=== PATIENT | male | born 1975 | race Caucasian/White ===

== ENCOUNTER 2016-08-29 23:12 | Emergency (ER) | payer SELFPAY ==
[2016-08-29 23:22] VITALS: BP 157/88; PULSE 90; TEMP 98.3
[2016-08-30] MEDS ORDERED: KETOROLAC TROMETHAMINE 30 MG/1 ML VIAL IVPUSH ONE (00:12)
[2016-08-30] MEDS ORDERED: ONDANSETRON 4 MG/2 ML VIAL IVPUSH ONE (00:17)
--- NOTE | 2016-08-30 00:17 | PDOC ---
History of Present Illness - General Chief Complaint: Urinary Problem Stated Complaint: HEMATURIA Time Seen by Provider: 08/29/16 23:23 - History of Present Illness Initial Comments: 08/30/16 00:13 CHIEF COMPLAINT: urinary pain/hematuria HISTORY OF PRESENT ILLNESS: 40 yo M with no PMH presents to ED with pain to L lower back and urinary pain. Patient reports that he felt a little of the pain last week but then it went away until two days ago when the pain recurred "but much worse." He reports that he saw a little bit of blood in his urine today. He denies any vomiting or diarrhea but reports nausea today. PAST MEDICAL HISTORY: Denies past medical history FAMILY HISTORY: Denies SOCIAL HISTORY:Denies tobacco, alcohol, illicit drug use. SURGICAL HISTORY: Denies ALLERGIES: No known drug allergies REVIEW OF SYSTEMS General/Constitutional: Denies fever or chills. Denies weakness, weight change. HEENT: Denies change in vision. Denies ear pain or discharge. Denies sore throat. Cardiovascular: Denies chest pain or shortness of breath. Respiratory: Denies cough, wheezing, or hemoptysis. Gastrointestinal: Denies nausea, vomiting, diarrhea or constipation. Denies rectal bleeding. Genitourinary: Denies dysuria, frequency, or change in urination. Musculoskeletal: Denies joint or muscle swelling or pain. Denies neck or back pain. Skin and breasts: Denies rash or easy bruising. Neurologic: Denies headache, vertigo, loss of consciousness, or loss of sensation. PHYSICAL EXAM General Appearance: Well-appearing, appropriately dressed. No apparent distress. HEENT: EOMI, PERRLA, normal ENT inspection, normal voice, TMs normal, pharynx normal. No conjunctival pallor. No photophobia, scleral icterus. Neck: Supple. Trachea midline. No tenderness, rigidity, carotid bruit, stridor , lymphadenopathy, or thyromegaly. Respiratory/Chest: Lungs CTAB. No shortness of breath, chest tenderness, respiratory distress, accessory muscle use. No crackles, rales, rhonchi, stridor , wheezing, dullness Cardiovascular: RRR. S1, S2. No JVD, murmur, bradycardia, tachycardia. Vascular Pulses: Dorsalis-Pedis (R): 2+, Dorsalis-Pedis (L): 2+ Gastrointestinal/Abdominal: Normal bowel sounds. Abdomen soft, non-distended. No tenderness or rebound tenderness. No organomegaly, pulsatile mass, guarding , hernia, hepatomegaly, splenomegaly. Lymphatic: No adenopathy, tenderness. Musculoskeletal/Extremities: L CVA tenderness. Normal inspection. FROM of all extremities, normal capillary refill. Pelvis Stable. No CVA tenderness. No tenderness to extremities, pedal edema, swelling, erythema or deformity. Integumentary: Appropriate color, dry, warm. No cyanosis, erythema, jaundice or rash Neurologic: field project manager II-XII intact. Fully oriented, alert. Appropriate mood/affect. Motor strength 5/5. No appreciable EOM palsy, facial droop or sensory deficit. Past History - Past Medical History Allergies/Adverse Reactions: Allergies Allergy/AdvReac Type Severity Reaction Status Date / Time No Known Allergies Allergy Verified 08/29/16 23:21 Home Medications: Ambulatory Orders Ibuprofen 800 mg PO TID PRN #28 tablet 08/30/16 Tamsulosin HCl [Flomax] 0.4 mg PO DAILY #14 cap.er.24h 08/30/16 Other medical history: denies - Psycho/Social/Smoking Cessation Hx Suicidal Ideation: No Smoking History: Never smoked *Physical Exam - Vital Signs Last Vital Signs Temp Pulse Resp BP Pulse Ox 98.3 F 90 18 157/88 08/29/16 23:18 08/29/16 23:18 08/29/16 23:18 08/29/16 23:18 Medical Decision Making - Medical Decision Making 08/30/16 00:35 40 yo M with no PMH presents to ED with pain to L lower back and urinary pain. -UA, UCx -Spiral CT CT positive 6 mm distal left ureteral stone just adjacent to the UVJ. -Flomax given in ED Flomax rx sent to pharm. Advised patient to take meds as prescribed and f/u with urology. Advised patient of signs and symptoms for return to ER; patient verbalized understanding and agrees to plan. *DC/Admit/Observation/Transfer Diagnosis at time of Disposition: Kidney stone on left side - Discharge Dispostion Disposition: HOME Admit: No - Prescriptions Prescriptions: Tamsulosin HCl [Flomax] 0.4 mg PO DAILY #14 cap.er.24h Ibuprofen 800 mg PO TID PRN #28 tablet PRN Reason: Pain - Referrals Referrals: Sawyer Walton MD [Staff Physician] - - Patient Instructions Printed Discharge Instructions: DI for Kidney Stones Additional Instructions: Please take medications as prescribed. Follow up with urology within the week for further evaluation of your kidney stones. Use the strainer to try to catch the stone for analysis so you can bring it with you to the urologist. If you experience any new or worsening symptoms, please return to the ER. Por favor, tome los medicamentos segn las indicaciones. Siga con urologa esta semana para caesar evaluacin ms detallada de mirna clculos renales. Utilice el colador para intentar coger la stephane para el anlisis as que usted puede traerla con usted al urlogo. Si experimenta algn sntoma nuevo o que empeora, por favor regrese a la rubens de emergencias. Print Language: GHANAIAN
[2016-08-30] MEDS ORDERED: KETOROLAC TROMETHAMINE 30 MG/1 ML VIAL ONE (00:18)
[2016-08-30] MEDS ORDERED: ONDANSETRON 4 MG/2 ML VIAL ONE (00:19)
[2016-08-30 00:46] LABS: URINE APPEARANCE CLEAR; URINE BILIRUBIN NEGATIVE (NEGATIVE); URINE BLOOD 3+ (NEGATIVE); URINE COLOR STRAW; URINE GLUCOSE (UA) NEGATIVE (NEGATIVE); URINE KETONE NEGATIVE (NEGATIVE); URINE LEUK ESTERASE NEGATIVE (NEGATIVE); URINE NITRITE NEGATIVE (NEGATIVE); URINE PROTEIN NEGATIVE (NEGATIVE); URINE UROBILINOGEN NEGATIVE mg/dL (0.2-1.0)
[2016-08-30 01:17] LABS: URINE MUCUS RARE; URINE RBC 46 /hpf (0-3); URINE WBC 4 /hpf (3-5)
[2016-08-30] MEDS ORDERED: TAMSULOSIN HCL 0.4 MG CAP.ER.24H (FP) PO ONE (02:30)
[2016-08-30] MEDS ORDERED: TAMSULOSIN HCL 0.4 MG CAP.ER.24H (FP) ONE (02:51)
== END 2016-08-30 03:15 | disposition home or self-care (01) ==
LOC: JER 23:12
PROC: 3E0333Z Introduction of Anti-inflammatory into Peripheral Vein, Percutaneous Approach (ICD-10-PCS; principal; 2016-08-29)
PROC: 3E033GC Introduction of Other Therapeutic Substance into Peripheral Vein, Percutaneous Approach (ICD-10-PCS; 2016-08-29)
DX: N20.0 Calculus of kidney (principal)
CPT/HCPCS: 74176; 81003; 81015; 87086; 99282-25